=== PATIENT | female | born 1965 | race Caucasian/White ===

== ENCOUNTER 2021-04-18 19:55 | Inpatient (IN) | payer BC ==
[~2021-04-18] VITALS: Ht 165.1 cm; Wt 75.3 kg
[2021-04-18] MEDS ORDERED: ONDANSETRON HCL INJ 2MG/ML 2ML 2 MG/ML VIAL ONE (21:24)
[2021-04-18] MEDS ORDERED: KETOROLAC TROMETHAMINE 30 MG/ML VIAL IV STA (21:25)
[2021-04-18] MEDS ORDERED: ONDANSETRON HCL INJ 2MG/ML 2ML 2 MG/ML VIAL IV STA (21:25)
[2021-04-18] MEDS ORDERED: Morphine 4mg Syringe 4 MG/ML INJ IV ONE (21:30)
[2021-04-18] MEDS: SODIUM CHLORIDE 0.9% 1000ML 1,000 ML IV SCH (21:39)
[2021-04-18] MEDS ORDERED: Morphine 2mg Syringe 2 MG/ML SYR ONE (21:40)
[2021-04-18 21:49] LABS: CLARITY,URINE CLOUDY (CLEAR); COLOR,URINE YELLOW (YELLOW); KETONES,URINE NEGATIVE (NEGATIVE); LEUKOCYTE ESTERASE ,URINE NEGATIVE (NEGATIVE); NITRITE,URINE NEGATIVE (NEGATIVE); PROTEIN,URINE DIPSTICK NEGATIVE (NEGATIVE); URINE UROBILINOGEN 0.2 mg/dL (0.2 - 1)
[2021-04-18 21:51] LABS: ALBUMIN 4.2 g/dL (3.5-5.0); ALBUMIN/GLOBULIN RATIO 1.5 (0.8-2.0); CALCIUM 10.1 mg/dL (8.4-10.2); CREATININE, SERUM 1.06 mg/dL (0.57-1.11)
[2021-04-18 21:57] LABS: BASOPHILS # (AUTO) 0.1 (0.0-0.1); BASOPHILS % 0.4 % (0.0-1.0); EOSINOPHILS # (AUTO) 0.1 (0.0-0.4); EOSINOPHILS % 0.3 % (0.0-6.0); HEMOGLOBIN 15.3 g/dL (12.0-16.0); LYMPHOCYTES # (AUTO) 2.3 (1.0-3.2); LYMPHOCYTES % 13.7 % (18.0-39.1); MEAN CORPUSCULAR HEMOGLOBIN 30.5 pg (28-32); MEAN CORPUSCULAR HGB CONC 33.3 g/dL (31-35); MEAN CORPUSCULAR VOLUME 91.6 fL (81-99); MONOCYTES # (AUTO) 0.6 (0.2-0.8); MONOCYTES % 3.8 % (4.4-11.3); NEUTROPHILS # (AUTO) 13.5 (2.1-6.9); NEUTROPHILS % 81.4 % (38.7-80.0); PLATELET COUNT 297 x10e3/uL (140-360); RED BLOOD COUNT 5.02 x10e6/uL (3.6-5.1); RED CELL DISTRIBUTION WIDTH 12.3 % (11.7-14.4)
[2021-04-18] MEDS ORDERED: HYDROMORPHONE 1MG/1ML INJ IV STA (22:06)
[2021-04-18 22:08] LABS: BACTERIA,URINE FEW /HPF; RBC,URINE 0-5 /HPF (0-5); WBC,URINE (MAN) 0-5 /HPF (0-5)
[2021-04-18 22:09] LABS: AMORPHOUS SEDIMENT,URINE MANY (FEW); EPITHELIAL CELLS,URINE MODERATE /LPF
[2021-04-18] MEDS ORDERED: PIPERACILLIN IV STA (23:41)
[2021-04-18] MEDS ORDERED: TAZO IV STA (23:41)
[2021-04-18] MEDS ORDERED: SODIUM CHLORIDE 0.9% IV STA (23:41)
[2021-04-18] MEDS ORDERED: Morphine 4mg Syringe 4 MG/ML INJ IV PRN (23:45)
[2021-04-18] MEDS ORDERED: SODIUM CHLORIDE 0.9% 1000ML 1,000 ML IV SCH (23:45)
[2021-04-18] MEDS ORDERED: PIPERACILLIN/TAZO 4.5 GM 100 ML IV ONE (23:55)
[2021-04-19] VITALS (8 sets, daily range): BP systolic 130–183; BP diastolic 63–82
[2021-04-19] MEDS: SODIUM CHLORIDE 0.9% 1000ML 1,000 ML IV SCH ×4 (00:47→23:57)
[2021-04-19] MEDS ORDERED: LOSARTAN POTASS25 MG PO (02:34)
[2021-04-19] MEDS ORDERED: HYDROXYZINE HCL25 MG PO (02:34)
[2021-04-19] MEDS ORDERED: BUPROPION XL150 MG PO (02:34)
[2021-04-19] MEDS ORDERED: SERTRALINE HCL100 MG PO (02:34)
[2021-04-19] MEDS ORDERED: MONTELUKAST SOD10 MG PO (02:34)
[2021-04-19] MEDS ORDERED: CRESTOR10 MG PO (02:34)
[2021-04-19] MEDS: ONDANSETRON HCL INJ 2MG/ML 2ML 2 MG/ML VIAL IV PRN ×2 (05:02→10:00)
[2021-04-19 07:43] LABS: ANION GAP 11.9 mmol/L (8-16); BASOPHILS # (AUTO) 0.1 (0.0-0.1); BASOPHILS % 0.4 % (0.0-1.0); CALCIUM 7.7 mg/dL (8.4-10.2); CREATININE, SERUM 0.9 mg/dL (0.57-1.11); EOSINOPHILS # (AUTO) 0.1 (0.0-0.4); HEMATOCRIT 41.6 % (34.2-44.1); HEMOGLOBIN 13.5 g/dL (12.0-16.0); LYMPHOCYTES # (AUTO) 3.6 (1.0-3.2); LYMPHOCYTES % 28.3 % (18.0-39.1); MEAN CORPUSCULAR HEMOGLOBIN 30.1 pg (28-32); MEAN CORPUSCULAR HGB CONC 32.5 g/dL (31-35); MEAN CORPUSCULAR VOLUME 92.9 fL (81-99); MONOCYTES % 7.8 % (4.4-11.3); NEUTROPHILS % 62.2 % (38.7-80.0); PLATELET COUNT 231 x10e3/uL (140-360); POTASSIUM 3.9 mmol/L (3.5-5.1); RED BLOOD COUNT 4.48 x10e6/uL (3.6-5.1); RED CELL DISTRIBUTION WIDTH 12.3 % (11.7-14.4)
[2021-04-19] MEDS ORDERED: TOMOXIFEN PO (10:06)
[2021-04-19] MEDS: LOSARTAN POTASSIUM 25 MG TAB PO SCH (13:21)
[2021-04-19] MEDS: PIPERACILLIN/TAZOBACTAM 4.5 GM in SODIUM CHLORIDE 0.9% 100 ML IV SCH ×2 (14:00→22:14)
[2021-04-19] MEDS ORDERED: Morphine 4mg Syringe 4 MG/ML INJ ONE (15:55)
[2021-04-19] MEDS ORDERED: GUAIFENESIN 600MG/DEXTROMETHORPHAN 30MG TABSR PO PRN (16:15)
[2021-04-19] MEDS: HYDROMORPHONE 1MG/1ML INJ IV PRN (20:13)
[2021-04-19] MEDS ORDERED: HYDROXYZINE HCL 25 MG TAB PO PRN (21:00)
[2021-04-19] MEDS: MONTELUKAST SODIUM 10 MG TAB PO SCH (21:41)
[2021-04-19] MEDS: SERTRALINE HCL 100 MG TAB PO SCH (21:41)
[2021-04-20] VITALS (7 sets, daily range): BP systolic 128–154; BP diastolic 61–67
[2021-04-20] MEDS: HYDROMORPHONE 1MG/1ML INJ IV PRN ×2 (03:51→17:35)
[2021-04-20] MEDS: PIPERACILLIN/TAZOBACTAM 4.5 GM in SODIUM CHLORIDE 0.9% 100 ML IV SCH ×3 (05:16→21:32)
[2021-04-20 06:10] LABS: BASOPHILS # (AUTO) 0.1 (0.0-0.1); BASOPHILS % 0.5 % (0.0-1.0); EOSINOPHILS # (AUTO) 0.3 (0.0-0.4); EOSINOPHILS % 2.8 % (0.0-6.0); HEMATOCRIT 41.2 % (34.2-44.1); HEMOGLOBIN 13.6 g/dL (12.0-16.0); LYMPHOCYTES # (AUTO) 2.4 (1.0-3.2); LYMPHOCYTES % 22.8 % (18.0-39.1); MEAN CORPUSCULAR VOLUME 90.7 fL (81-99); MONOCYTES # (AUTO) 0.9 (0.2-0.8); MONOCYTES % 8.5 % (4.4-11.3); NEUTROPHILS # (AUTO) 6.9 (2.1-6.9); NEUTROPHILS % 65.2 % (38.7-80.0); PLATELET COUNT 219 x10e3/uL (140-360); RED BLOOD COUNT 4.54 x10e6/uL (3.6-5.1); RED CELL DISTRIBUTION WIDTH 12.4 % (11.7-14.4)
[2021-04-20 06:56] LABS: ALBUMIN 3.1 g/dL (3.5-5.0); ALBUMIN/GLOBULIN RATIO 1.4 (0.8-2.0); ANION GAP 10.8 mmol/L (8-16); CALCIUM 7.5 mg/dL (8.4-10.2); CHOL/HDL RATIO 3.1 (3.0-3.6); CREATININE, SERUM 0.78 mg/dL (0.57-1.11); POTASSIUM 3.8 mmol/L (3.5-5.1)
[2021-04-20 07:21] LABS: THYROID STIMULATING HORMONE 0.848 uIU/mL (0.350-4.940)
[2021-04-20] MEDS: SODIUM CHLORIDE 0.9% 1000ML 1,000 ML IV SCH ×4 (07:45→23:45)
[2021-04-20] MEDS: BUPROPION HCL 150 MG TABCR PO SCH (09:00)
[2021-04-20] MEDS: LOSARTAN POTASSIUM 25 MG TAB PO SCH (09:00)
[2021-04-20] MEDS ORDERED: ACETAMINOPHEN 325 MG TAB PO PRN (11:15)
[2021-04-20] MEDS ORDERED: FAMOTIDINE 20 MG/2 ML VIAL IV ONE (11:25)
[2021-04-20] MEDS ORDERED: BUPIVACAINE 0.25% 30ML SDV ONE (11:26)
[2021-04-20] MEDS ORDERED: LIDOCAINE HCL 2% LOCAL INJ 5 ML SDV VIAL INJ ONE (12:22)
[2021-04-20] MEDS ORDERED: METOCLOPRAMIDE HCL 10 MG/2ML VIAL ONE (12:22)
[2021-04-20] MEDS ORDERED: ROCURONIUM BROMIDE 10 MG/ML 5ML VIAL IV ONE (12:22)
[2021-04-20] MEDS ORDERED: KETOROLAC TROMETHAMINE 30 MG/ML VIAL ONE (12:22)
[2021-04-20] MEDS ORDERED: ONDANSETRON HCL INJ 2MG/ML 2ML 2 MG/ML VIAL ONE (12:22)
[2021-04-20] MEDS ORDERED: SEVOFLURANE INHAL SOLN 250 ML PEN BTL ONE (12:22)
[2021-04-20] MEDS ORDERED: PROPOFOL IV EMULSION 10 MG/ML 20 ML VIAL ONE (12:22)
[2021-04-20] MEDS ORDERED: DEXAMETHASONE SOD PHOS INJ 4 MG/ML SDV ONE (12:22)
[2021-04-20] MEDS ORDERED: POVIDONE IODINE 0.05% 0.05 % ML PO ONE (12:22)
[2021-04-20] MEDS ORDERED: SUGAMMADEX SODIUM 200 MG/2 ML VIAL IV ONE (12:52)
[2021-04-20] MEDS ORDERED: TRAMADOL HCL 50 MG TAB PO PRN (13:00)
[2021-04-20] MEDS ORDERED: FENTANYL CITRATE/PF 100MCG/2 ML INJ ONE ×2 (13:05→13:32)
[2021-04-20] MEDS ORDERED: MIDAZOLAM HCL 2 MG/2 ML VIAL ONE (13:05)
[2021-04-20] MEDS: ONDANSETRON HCL INJ 2MG/ML 2ML 2 MG/ML VIAL IV PRN (17:35)
[2021-04-20] MEDS: MONTELUKAST SODIUM 10 MG TAB PO SCH (20:26)
[2021-04-20] MEDS: SERTRALINE HCL 100 MG TAB PO SCH (20:26)
[2021-04-21 00:21] VITALS: BP 134/62
[2021-04-21 04:56] LABS: BASOPHILS # (AUTO) 0.1 (0.0-0.1); BASOPHILS % 0.4 % (0.0-1.0); EOSINOPHILS # (AUTO) 0.1 (0.0-0.4); EOSINOPHILS % 0.4 % (0.0-6.0); HEMATOCRIT 38.6 % (34.2-44.1); HEMOGLOBIN 12.4 g/dL (12.0-16.0); LYMPHOCYTES # (AUTO) 2.7 (1.0-3.2); LYMPHOCYTES % 21.5 % (18.0-39.1); MEAN CORPUSCULAR HGB CONC 32.1 g/dL (31-35); MEAN CORPUSCULAR VOLUME 93.2 fL (81-99); MONOCYTES # (AUTO) 0.9 (0.2-0.8); MONOCYTES % 6.8 % (4.4-11.3); NEUTROPHILS # (AUTO) 8.9 (2.1-6.9); NEUTROPHILS % 70.7 % (38.7-80.0); PLATELET COUNT 205 x10e3/uL (140-360); RED BLOOD COUNT 4.14 x10e6/uL (3.6-5.1); RED CELL DISTRIBUTION WIDTH 12.4 % (11.7-14.4)
[2021-04-21 05:23] VITALS: BP 125/66
[2021-04-21] MEDS: PIPERACILLIN/TAZOBACTAM 4.5 GM in SODIUM CHLORIDE 0.9% 100 ML IV SCH (05:30)
[2021-04-21 05:33] LABS: ALBUMIN 2.7 g/dL (3.5-5.0); ALBUMIN/GLOBULIN RATIO 1.3 (0.8-2.0); ANION GAP 10.3 mmol/L (8-16); CALCIUM 7.2 mg/dL (8.4-10.2); CREATININE, SERUM 0.76 mg/dL (0.57-1.11); POTASSIUM 3.3 mmol/L (3.5-5.1)
[2021-04-21 08:02] VITALS: BP 129/74
[2021-04-21] MEDS: BUPROPION HCL 150 MG TABCR PO SCH (09:00)
[2021-04-21] MEDS: SODIUM CHLORIDE 0.9% 1000ML 1,000 ML IV SCH (09:54)
[2021-04-21] MEDS: LOSARTAN POTASSIUM 25 MG TAB PO SCH (09:54)
[2021-04-21 11:37] VITALS: BP 130/60
[2021-04-21] MEDS ORDERED: ACETAMINOPHEN325 M1 PO (11:40)
[2021-04-21] MEDS ORDERED: ULTRAM 50MG50 MG PO (11:40)
[2021-04-21] MEDS ORDERED: ONDANSETRON HCL 4 MG ORAL DISINTEGRATING TAB PO PRN (13:00)
[2021-04-21] MEDS ORDERED: PANTOPRAZOLE SOD 40 MG TABEC PO SCH (16:30)
== END 2021-04-21 13:05 | disposition home or self-care (01) | DRG 419 ==
LOC: ER 20:11 → ERHOLD 23:46 → MED/SURG 04-19 01:30 → OBSVTOIN 04-20 18:00
PROVIDERS: ADMIT Internal Medicine; ATTEND Internal Medicine
PROC: 0FT44ZZ Resection of Gallbladder, Percutaneous Endoscopic Approach (ICD-10-PCS; principal; 2021-04-20 11:30)
DX: K80.20 Calculus of gallbladder without cholecystitis without obstruction (principal); I10 Essential (primary) hypertension; Z87.891 Personal history of nicotine dependence; K80.01 Calculus of gallbladder with acute cholecystitis with obstruction; C50.912 Malignant neoplasm of unspecified site of left female breast; F41.9 Anxiety disorder, unspecified; F32.A Depression, unspecified; K21.9 Gastro-esophageal reflux disease without esophagitis; J30.2 Other seasonal allergic rhinitis; Z20.822 Contact with and (suspected) exposure to COVID-19
CPT/HCPCS: 36415; 76705; 78227; 80048; 80053; 80061; 81001; 83036; 83690; 83735; 84443; 85025; 88304; 94799; 99284; A9537; G0378; J0690; J1100; J1170; J1885; J2001; J2250; J2270; J2405; J2543; J2765; J3010; J7030; J7050; U0002

== ENCOUNTER 2022-03-23 16:03 | Emergency (ER) | payer BC, OTHER ==
[~2022-03-23] VITALS: Ht 165.1 cm; Wt 75.8 kg
[~2022-03-23 16:03] MED LIST: ACETAMINOPHEN325 M1 PO; BUPROPION XL150 MG PO; CRESTOR10 MG PO; HYDROXYZINE HCL25 MG PO; LOSARTAN POTASS25 MG PO; MONTELUKAST SOD10 MG PO; SERTRALINE HCL100 MG PO; TOMOXIFEN PO; ULTRAM 50MG50 MG PO
[2022-03-23] MEDS ORDERED: VENLAFAXINE HCL75 M2 PO (16:24)
[2022-03-23] MEDS ORDERED: TAMOXIFEN CITRA20 MG (16:24)
[2022-03-23] MEDS ORDERED: OZEMPIC0.25 MG/0. SC (16:24)
== END 2022-03-23 17:47 | disposition home or self-care (01) ==
LOC: FSED 16:38
DX: R10.32 Left lower quadrant pain (principal); S30.1XXA Contusion of abdominal wall, initial encounter; W18.39XA Other fall on same level, initial encounter; Y92.89 Other specified places as the place of occurrence of the external cause; I10 Essential (primary) hypertension; E78.5 Hyperlipidemia, unspecified; F41.9 Anxiety disorder, unspecified; Z85.3 Personal history of malignant neoplasm of breast
CPT/HCPCS: 72170; 99283